=== PATIENT | male | born 1935 | race Caucasian/White ===

== ENCOUNTER → 2017-01-27 | Outpatient (CLI) | payer MEDICARE | LOC: GMAB 10:55 | PROVIDERS: ATTEND Family Medicine | DX: N18.4 Chronic kidney disease, stage 4 (severe) (principal); I10 Essential (primary) hypertension ==

== ENCOUNTER → 2017-10-07 | Outpatient (CLI) | payer MEDICARE | END | disposition home or self-care (01) | LOC: GMAB 11:01 | PROVIDERS: ATTEND Family Medicine | DX: I12.9 Hypertensive chronic kidney disease with stage 1 through stage 4 chronic kidney disease, or unspecified chronic kidney disease (principal); N18.4 Chronic kidney disease, stage 4 (severe); Z12.5 Encounter for screening for malignant neoplasm of prostate | CPT/HCPCS: 83735; 83970; 84100; 84443; 84550; G0103 ==

== ENCOUNTER → 2018-02-02 | Outpatient (CLI) | payer MEDICARE | LOC: GMAB 11:19 | PROVIDERS: ATTEND Family Medicine | DX: E11.22 Type 2 diabetes mellitus with diabetic chronic kidney disease (principal) ==

== ENCOUNTER → 2018-10-12 | Outpatient (CLI) | payer MEDICARE | LOC: GMAE 12:51 | PROVIDERS: ATTEND Family Medicine | DX: I10 Essential (primary) hypertension (principal) ==

== ENCOUNTER → 2019-01-11 | Outpatient (CLI) | payer MEDICARE | LOC: GMAE 11:24 | PROVIDERS: ATTEND Family Medicine | DX: G60.3 Idiopathic progressive neuropathy (principal); M62.81 Muscle weakness (generalized) ==

== ENCOUNTER → 2019-09-11 | Day surgery (SDC) | payer MEDICARE ==
[~2019-09-11] MED LIST: BRIMONIDINE 0.2% OPHTH DROPS LEFT_EYE ONE; DEXAMETHASONE 0.1% OPHTH SOL 1 DROP LEFT_EYE ONE; LIDOCAINE 1% MPF 2 ML VIAL INJ ONE; MIDAZOLAM INJ 2 MG/2 ML VIAL ONE; MOXIFLOXACIN HCL (OPHTH) 1 DROP DROPS LEFT_EYE ONE; PROPARACAINE 0.5% OPHTH SOL 15 ML BTTL LEFT_EYE ONE; TOBRAMYCIN SULF 0.3 % OPHT SOL 1 DROP LEFT_EYE ONE
== END ==
LOC: AMB 05:09
PROVIDERS: ATTEND Ophthalmology
DX: E11.36 Type 2 diabetes mellitus with diabetic cataract (principal); H25.12 Age-related nuclear cataract, left eye; I10 Essential (primary) hypertension
CPT/HCPCS: 00142; 66984; J2250

== ENCOUNTER 2019-10-02 05:27 | Day surgery (SDC) | payer MEDICARE ==
[2019-10-02] MEDS ORDERED: MIDAZOLAM INJ 2 MG/2 ML VIAL ONE (09:34)
[2019-10-02] MEDS: PROPARACAINE 0.5% OPHTH SOL 15 ML BTTL RIGHT_EYE ONE (09:37)
[2019-10-02] MEDS: TOBRAMYCIN SULF 0.3 % OPHT SOL 1 DROP RIGHT_EYE ONE ×2 (09:48→10:02)
[2019-10-02] MEDS: LIDOCAINE 1% MPF 2 ML VIAL INJ ONE (09:48)
[2019-10-02] MEDS: DEXAMETHASONE 0.1% OPHTH SOL 1 DROP RIGHT_EYE ONE ×2 (09:48→10:02)
[2019-10-02] MEDS: MOXIFLOXACIN HCL (OPHTH) 1 DROP DROPS RIGHT_EYE ONE ×2 (09:48→10:02)
[2019-10-02] MEDS: BRIMONIDINE 0.2% OPHTH DROPS RIGHT_EYE ONE ×2 (09:49→10:02)
== END 2019-10-02 10:45 | disposition home or self-care (01) ==
LOC: AMB 05:27
PROVIDERS: ATTEND Ophthalmology
DX: E11.36 Type 2 diabetes mellitus with diabetic cataract (principal); H25.11 Age-related nuclear cataract, right eye; I10 Essential (primary) hypertension
CPT/HCPCS: 00142; 66984; J2250

== ENCOUNTER → 2019-10-17 | Outpatient (CLI) | payer MEDICARE | LOC: GMAE 10:38 | PROVIDERS: ATTEND Family Medicine | DX: I10 Essential (primary) hypertension (principal); M81.8 Other osteoporosis without current pathological fracture; E11.22 Type 2 diabetes mellitus with diabetic chronic kidney disease ==

== ENCOUNTER → 2020-10-22 | Outpatient (CLI) | payer MEDICARE | LOC: GMAE 10:34 | PROVIDERS: ATTEND Family Medicine | DX: Z12.5 Encounter for screening for malignant neoplasm of prostate (principal); I10 Essential (primary) hypertension; E78.2 Mixed hyperlipidemia; E11.22 Type 2 diabetes mellitus with diabetic chronic kidney disease | CPT/HCPCS: 84443; G0103 ==

== ENCOUNTER → 2020-10-28 | Outpatient (CLI) | payer MEDICARE | LOC: YCFC.O 16:10 | PROVIDERS: ATTEND Family Medicine | DX: Z03.89 Encounter for observation for other suspected diseases and conditions ruled out (principal) ==